=== PATIENT | male | born 1980 | race Caucasian/White ===

== ENCOUNTER 2024-11-14 14:16 | Inpatient (IN) | payer BC, SELFPAY ==
[2024-11-14] MEDS ORDERED: cefTRIAXone (ROCEPHIN) 2 GM VIAL ONE (15:11)
[2024-11-14] MEDS ORDERED: Cefepime 2 GM VIAL ONE (15:21)
[2024-11-14 15:38] LABS: #Basophils 0.04 10x3/uL (0.0-0.2); #Eosinophils 0.33 10x3/uL (0.0-0.5); #Monocytes 0.46 10x3/uL (0.0-1.1); #Neutrophils 3.09 10x3/uL (1.5-8.4); %Basophils 0.7 % (0.0-2.0); %Eosinophils 6.0 % (0.0-6.0); %Lymphocytes 28.8 % (18.0-47.0); %Monocytes 8.3 % (0.0-10.0); %Neutrophils 56.0 % (40.0-75.0); Hematocrit 46.2 % (38.8-50.0); Hemoglobin 15.8 g/dL (13.5-17.5); Mean Corpuscular Hemoglobin 30.8 pg (27.0-33.0); Mean Corpuscular Volume 90.1 fL (81.2-95.1); Platelet Count 307 10x3/uL (150-450); Red Blood Cell (RBC) Count 5.13 10x6/uL (4.32-5.72); White Blood Cell (WBC) Count 5.52 10x3/uL (3.5-10.5)
[2024-11-14 16:03] LABS: ALT (SGPT) 47 U/L (Less than 45); AST (SGOT) 42 U/L (11-34); Albumin 3.9 g/dL (3.1-4.5); Alkaline Phosphatase 100 U/L (40-110); Anion Gap 11 mmol/L (10-20); BUN (Urea Nitrogen) 13 mg/dL (8.9-20.6); Bilirubin, Total 0.4 mg/dL (0.3-1.2); Calc. Creatinine Clearance 0 mL/min (70-130); Calcium 9.4 mg/dL (7.8-10.44); Carbon Dioxide 27 mmol/L (22-29); Chloride 105 mmol/L (98-107); Globulin 4.2 g/dL (2.4-3.5); Glucose 112 mg/dL (70-105); Potassium 4.1 mmol/L (3.5-5.1); Sodium 139 mmol/L (136-145)
[2024-11-14] MEDS ORDERED: Ondansetron PF 4 MG/2 ML Vial IVP PRN (16:53)
[2024-11-14] MEDS ORDERED: Acetaminophen 325 MG TAB PO PRN (16:53)
[2024-11-14] MEDS ORDERED: Bisacodyl 10 MG SUPP PR PRN (16:53)
[2024-11-14] MEDS ORDERED: Melatonin 3 MG TAB PO PRN (16:53)
[2024-11-14] MEDS ORDERED: Calcium Carbonate 500 MG ChewTAB PO PRN (16:53)
[2024-11-14] MEDS ORDERED: Senokot S 8.6-50 MG TAB PO PRN (16:53)
[2024-11-14] MEDS ORDERED: Glucagon 1 MG/ML KIT IM PRN (16:55)
[2024-11-14] MEDS ORDERED: Dextrose 50% Abboject 50 ML SYRINGE SLOW IVP PRN (16:55)
[2024-11-14 20:37] VITALS: BMI 50.1
[2024-11-14] MEDS: HYDROcodone/Acetaminophen 5/325 mg Tablet PO PRN (21:23)
[2024-11-14] MEDS: VANCOMYCIN 2 GRAM/400 ML BAG 2 GM in Premix 1 BAG IVPB SCH (22:34)
[2024-11-15 05:39] LABS: #Basophils 0.04 10x3/uL (0.0-0.2); #Eosinophils 0.45 10x3/uL (0.0-0.5); #Monocytes 0.48 10x3/uL (0.0-1.1); #Neutrophils 2.29 10x3/uL (1.5-8.4); %Basophils 0.8 % (0.0-2.0); %Eosinophils 9.2 % (0.0-6.0); %Lymphocytes 32.9 % (18.0-47.0); %Monocytes 9.9 % (0.0-10.0); %Neutrophils 47.0 % (40.0-75.0); Hematocrit 42.8 % (38.8-50.0); Hemoglobin 14.3 g/dL (13.5-17.5); Mean Corpuscular Hemoglobin 30.8 pg (27.0-33.0); Mean Corpuscular Volume 92.0 fL (81.2-95.1); Platelet Count 236 10x3/uL (150-450); Red Blood Cell (RBC) Count 4.65 10x6/uL (4.32-5.72); White Blood Cell (WBC) Count 4.87 10x3/uL (3.5-10.5)
[2024-11-15] MEDS: VANCOMYCIN 1.75 GM/350 ML BAG 1.75 GM in Premix 1 BAG IVPB SCH (05:41)
[2024-11-15 05:52] LABS: Anion Gap 12 mmol/L (10-20); BUN (Urea Nitrogen) 11 mg/dL (8.9-20.6); Calc. Creatinine Clearance 262 mL/min (70-130); Calcium 8.7 mg/dL (7.8-10.44); Carbon Dioxide 24 mmol/L (22-29); Chloride 107 mmol/L (98-107); Glucose 110 mg/dL (70-105); Potassium 3.8 mmol/L (3.5-5.1); Sodium 139 mmol/L (136-145); Vancomycin, Random 7.9 ug/mL (See Comment)
[2024-11-15] MEDS: Enoxaparin 40 MG (0.4 mL) SYRINGE SC SCH (08:45)
[2024-11-15 10:05] VITALS: BP 128/88; TEMP 97.8
[2024-11-15] MEDS: Ketorolac Tromethamine 30 MG (1 mL) VIAL IVP PRN (15:07)
== END 2024-11-15 15:45 | disposition home or self-care (01) | DRG 603 ==
LOC: CSHERS 14:16 → CSHERHOLD 16:53 → CSHTELE 20:18
PROVIDERS: ADMIT Internal Medicine; ATTEND Student in an Organized Health Care Education/Training Program
DX: L03.115 Cellulitis of right lower limb (principal); Z68.43 Body mass index [BMI] 50.0-59.9, adult; L97.519 Non-pressure chronic ulcer of other part of right foot with unspecified severity; L02.415 Cutaneous abscess of right lower limb; E66.813 Obesity, class 3; F17.210 Nicotine dependence, cigarettes, uncomplicated; R73.9 Hyperglycemia, unspecified; I10 Essential (primary) hypertension; Z98.890 Other specified postprocedural states
CPT/HCPCS: 36415; 36416; 80048; 80053; 80202; 83036; 83605; 85025; 86140; 87040; 87070; 87077; 87081; 87186; 87205; 93005; 96365; 96375; 97139; J0692; J0696; J1650; J1885; J2543; J3375